=== PATIENT | female | born 1950 | race Caucasian/White ===

== ENCOUNTER 2019-03-28 12:28 | Day surgery (SDC) | payer OTHER, SELFPAY ==
[2019-03-14 07:51] VITALS: BMI 39.8
[2019-03-28] VITALS (12 sets, daily range): BP systolic 126–159; BP diastolic 72–94; PULSE 61–111; RESP 16–18; TEMP 35.6–36.6; O2SAT 94–98; BMI 39.4
--- NOTE | 2019-03-28 | DI.RAD.S_ITS ---
PROCEDURE: XR LUMBAR SPINE 1V INDICATIONS: LEFT L4-5 LAMI, L5-S1 DISC. TECHNIQUE: 2 views of the lumbar spine were acquired. COMPARISON: [facility], MR, MR LUMBAR SPINE WITHOUT CONTRAST, 02/03/2019, 16:54. FINDINGS: The quality of visualization is somewhat limited by large patient body habitus. Bones: An initial localization probe image from lateral view documents placement of probe superimposed on the posterior elements of L5-S1. Time is 17:51 time is immediately superficial to the posterior elements of L5-S1, time is 17:51 Subsequent image shows localization probe dorsal to the L4-L5 posterior elements. Time is 18:18. Soft tissues: Overlying bowel gas pattern is normal. No suspicious soft tissue calcifications. IMPRESSION: 2 separate levels of localization are documented, with the initial 17:51 localization at L5-S1 in the subsequent 18:18 localization at L4-L5. Dictated by: Wayne Sanchez M.D. on 03/29/2019 at 9:33 Approved by: Wayne Sanchez M.D. on 03/29/2019 at 9:38
[2019-03-28] MEDS: LACTATED RINGERS 1,000 ML 42 ML IV ×2 (13:12→16:55)
[2019-03-28] MEDS: fentaNYL 100 MCG/2 ML INJ 25 MCG IV (15:16)
--- NOTE | 2019-03-28 15:28 | SUR.PREOP ---
Dr. Higuera notified patient c/o pain. VVO for Fentanyl IV. Patient medicated. Reported pain level improving. Continuous pulse ox placed.
--- NOTE | 2019-03-28 15:36 | PM.PREOP ---
Pre-operative Note Interval Note History & Physical reviewed/Exam performed by Physician: Yes Changes to H&P: No
[2019-03-28] MEDS: SCOPOLAMINE 1 PATCH TOP (16:11)
[2019-03-28] MEDS: CEFAZOLIN 2 GM/100 ML FROZ.PIGGY IV ×2 (16:20→23:36)
--- NOTE | 2019-03-28 16:44 | SUR.OPER ---
Prone on spine table, head in foam head support, padded chest and pelvic supports, gel pad at knees, lower legs supported by pillows; nipples, genitalia and toes free of pressure, arms secured on foam padded arm boards at <90 degrees abduction. Tape over blanket at thigh secured to table.
[2019-03-28] MEDS: SODIUM CHLORIDE 0.9% 1,000 ML, GENTAMICIN 80 MG IRR (16:49)
[2019-03-28] MEDS: BUPIVACAINE 0.25% (PF) 8 ML, fentaNYL 100 MCG INJ (16:49)
[2019-03-28] MEDS: THROMBIN (RECOMBINANT) 5,000 UNIT VIAL 5000 UNIT TOP (16:50)
[2019-03-28] MEDS: VANCOMYCIN 1,000 MG VIAL 1000 MG TOP (16:54)
--- NOTE | 2019-03-28 17:59 | PM.OP.1 ---
Operative Date/Time/Diagnoses Date of procedure: 03/28/19 Time of procedure: 17:59 Pre-op diagnosis: Lumbar stenosis with radiculopathy Lumbar disc herniation Morbid obesity Post-op diagnosis: same Procedure & Clinicians Procedure: L5-S1 diskectomy on left L4-5 laminectomy with facet cyst excision Use of microscope Placement of epidural catheter Same procedure as scheduled: Yes Indications: [age] year old female with intractable pain from stenosis and disc herniation. They had failed conservative management and requested operative intervention. Risks and benefits of surgery were discussed and appropriate consents were obtained. Surgeon: Tim Briggs Anesthesia Type: General Operative Notes Findings: None Closure Type: primary Specimen(s): none sent Estimated Blood Loss (mL): 10 Blood products transfused: none Procedure in detail: Patient was brought to the operating room and intubated on the table. A time-out was performed. There were rolled over the well-padded prone position on the Murray table. The back was prepped and draped in standard sterile fashion. Preoperative antibiotics were given. Using fluoroscopy, a 4 cm incision was made to the well-marked left of the midline at the L5-S1 level. We used Bovie to come down to and split the fascia. We then used the NuVasive MaXcess dilators with fluoroscopy and then opened our retractors. The soft tissue was cleared off with Bovie, a marker was placed, an x-ray was taken to confirm positioning at L5-S1. We then brought in the microscope. A combination of high-speed bur and Kerrison were used to perform a left-sided hemilaminotomy and hemifacetectomy. We carefully retracted the dura and exposed the disc. This was cleared with bipolar. This was very soft and felt more cystic. A scalpel used to perform an annulotomy and the majority of the cystic disc deflated although there still disc tissue below this. A pituitary was used to perform the diskectomy. The ball probe was swept underneath the dura along the disc to make sure there were no further loose fragments. This was also placed into the disc and moved around to make sure there were no further loose fragments. Once everything was adequately decompressed, the wound was copiously irrigated. We then removed the retractor and brought x-ray in again. We used the dilators to go to the L4-5 level. This was cleared off and a marker was placed to confirm positioning. We brought the microscope back in. Johnie and Kerrison rongeur screws to perform a left-sided laminectomy. We removed the facet cyst and the subarticular stenosis. At the end of this we could clear past the midline, cephalad and caudally and out laterally out to the foramen and everything was opened. An epidural catheter was filled with 100 mcg of fentanyl and 8 mL of 0.25% Marcaine. The dura was carefully depressed under the laminotomy site and the catheter was advanced 6 cm cephalad. The retractor was removed and the fascia was closed. The epidural catheter was then injected without resistance and removed. Vancomycin powder was placed in the wound. Superficial and skin were closed. Sterile dressing was placed. The patient was then rolled over, transferred to the stretcher, and brought to recovery room without complications. Please note this was a more complex case due to the patient's morbid obesity with a BMI of 40. We had used very long retractors and had limited motion with our instruments. This added an extra 30-45 minutes to the surgical time due to the complexity and difficulty from the morbid obesity. Complications: none Post-operative Condition: stable Disposition: PACU Plan for aftercare: Overnight admission. Up with PT and probable discharge tomorrow.
[2019-03-28] MEDS: ONDANSETRON 4 MG/2 ML INJ IV (18:15)
[2019-03-28] MEDS: HALOPERIDOL 5 MG/ML VIAL 2 MG IV (18:29)
--- NOTE | 2019-03-28 18:38 | SUR.PHASEI ---
pt. admitted into PACU @ 1809 moving about, trying to sit up, once up on her elbow pt. vomited yellow bile approx. 50cc. Anesthesia okay'd ondansetron IV for N/V.
--- NOTE | 2019-03-28 18:40 | SUR.PHASEI ---
with 5-10 min. of receiving IV ondansetron pt. vomited again, via emesis bag, approx 50cc. Anesthesia gave okay to administer haloperidol IV, once anesthesia put order in, pharmacy staff walked the haldol over to PACU, ACADEMIC COMPUTING DIRECTOR administered the drug for N/V.
--- NOTE | 2019-03-28 18:42 | SUR.PHASEI ---
N/V is controlled at present. Pt. rating pain minimal states maybe a 4
--- NOTE | 2019-03-28 19:02 | SUR.PHASEI ---
Report to Sisi Nobles RN.
[2019-03-28] MEDS: LACTATED RINGERS 1,000 ML 125 ML IV (20:55)
[2019-03-28] MEDS: HYDROMORPHONE 0.5 MG INJ IV (20:55)
--- NOTE | 2019-03-28 22:25 | PC.NURSE ---
Alanna shift note: Received patient from PACU, awake, alert and pleasant. S/P scheduled LAMI by Dr. Briggs. On RA, sat 98%. Oriented to room, environment, and plan of care. Educated regarding precautions, SCDs in place. Call light within reach, calls staff appropriately for assistance.
[2019-03-28] MEDS: ACETAMINOPHEN 325 MG TABLET 650 MG PO (23:43)
[2019-03-28] MEDS: OXYCODONE IR 5 MG TABLET 10 MG PO (23:44)
[2019-03-29] MEDS: OXYCODONE IR 5 MG TABLET 10 MG PO ×3 (03:27→13:29)
[2019-03-29] MEDS: PANTOPRAZOLE 20 MG TABLET PO (05:26)
[2019-03-29] MEDS: LEVOTHYROXINE 125 MCG TABLET PO (05:27)
[2019-03-29 06:12] VITALS: BP 103/58; PULSE 58; RESP 16; TEMP 36.6; O2SAT 96
[2019-03-29] MEDS: ACETAMINOPHEN 325 MG TABLET 650 MG PO ×2 (06:39→13:30)
[2019-03-29] MEDS: OXYCODONE IR 5 MG TABLET PO (06:40)
[2019-03-29] MEDS: CEFAZOLIN 2 GM/100 ML FROZ.PIGGY IV (07:54)
[2019-03-29 08:00] VITALS: BP 141/64; PULSE 55; RESP 16; TEMP 36.9; O2SAT 95
--- NOTE | 2019-03-29 08:19 | PC.NURSE ---
Addendum entered by Luci Chappell R.N. 03/29/19 14:06: DC - pt ambul with phys therapy, eval w/OT, dressed, sl dc'd, discussed pain mgt and given 10mg po oxycodone and 650mg po tylenol prior to discharge home, reviewed dc instructions, paperwork, scripts provided, belongings gathered, including cell phone, tablet, fire extinguisher charger, own fww, bag, glasses, dentures, transf to and barrel header escorted to family car. Original Note: AM NOTE - pt awakens easily at bedside shift report, lying l side, telfa over 4x4 to lower back cdi, bs dim, clear, discussed nausea post op has resolved and none overnight, +bt, + flatus, discussed constipation and narcotics, hr hallie, reg 58, footie scd on.
--- NOTE | 2019-03-29 08:25 | PM.PNPO.1 ---
Subjective Subjective Date Patient Seen: 03/29/19 Time Patient Seen: 08:25 Interval history: She is doing very well. Pain about 4/10 across the back. No more leg pain. She is finally doing better with nausea. Exam Vital Signs (past 8 hours): - 03/29/19 06:12 Temperature 97.8 F Pulse Rate 58 L Respiratory Rate 16 Blood Pressure 103/58 L Pulse Oximetry 96 Oxygen Delivery Method Room Air Oxygen Flow Rate 0 Const Orientation: alert and oriented x3 Back/Spine/Pelvis Other: CDI. 5/5 motor both lower extremities. Assessment & Plan Post-op Postoperative Procedures: Procedures Operation Date: 03/28/19 14:00 Actual Procedures Side Surgeon p Left L45 laminectomy & L5S1 discectomy Tim Briggs MD she is doing well. Mobilize with PT. Plan to discharge home this morning.
[2019-03-29] MEDS: DOCUSATE 100 MG CAPSULE PO (09:36)
[2019-03-29] MEDS: GABAPENTIN 300 MG CAPSULE PO (09:36)
[2019-03-29] MEDS: IBUPROFEN 400 MG TABLET 800 MG PO (09:36)
[2019-03-29] MEDS: DONEPEZIL 5 MG TABLET 10 MG PO (09:36)
[2019-03-29] MEDS: OLANZapine 2.5 MG TABLET 5 MG PO (09:37)
[2019-03-29] MEDS: BUSPIRONE 15 MG TABLET 7.5 MG PO (09:37)
[2019-03-29] MEDS: QUETIAPINE 25 MG TABLET 50 MG PO (09:43)
[2019-03-29] MEDS: levETIRAcetam 250 MG TABLET 1000 MG PO (09:45)
--- NOTE | 2019-03-29 09:45 | OT.IP.EVAL ---
Current Diagnoses Spondylolisthesis, lumbar region (03/28/19) Spinal stenosis, lumbar region with neurogenic claudication (03/28/19) Intervertebral disc disorders with radiculopathy, lumbar region (03/28/19) Surgery Performed Operation Date: 03/28/19 14:00 Actual Procedures p Left L45 laminectomy & L5S1 discectomy - Tim Briggs MD Past Medical History (Last Updated 03/14/19 @ 13:57 by Magalys Cagle RN) Acquired hypothyroidism (Acute) Anxiety (Acute) Arthritis (Acute) Carpal tunnel syndrome of left wrist (Acute) Carpal tunnel syndrome of right wrist (Acute) Compression fracture of L4 vertebra (Acute) Compression fracture of L5 vertebra (Acute) Depression (Acute) GERD (gastroesophageal reflux disease) (Acute) MARVIN (obstructive sleep apnea) (Acute) Osteoarthritis (Acute) Polycythemia (Acute) Seizure disorder (Acute) Thyroid disease (Acute) Surgical History (Last Updated 03/14/19 @ 13:57 by Magalys Cagle RN) H/O: hysterectomy (Acute) History of ankle surgery (Acute ~2005) History of colposcopy (Acute ~1994) Hx of cholecystectomy (Acute ~2009) Hx of tonsillectomy (Acute) Occupational Therapy Inpatient Evaluation/Re-Eval M1 PT/OT-IP Prior Functional Status Start: 03/29/19 10:04 Freq: NEEDED Status: Active Protocol: Document 03/29/19 10:05 [facility] (Rec: 03/29/19 10:29 [facility] [id number]) Medical Review Prior Functional Status Medical History Reviewed Yes Communication Independent Activities of Daily Living and IADL's Per pt needing increased time for LB dressing for left side and having more difficulty to step into her tub/shower. Pt otherwise independent with ADl and IADl needs. Pt does not drive due to history of seizures. Pt's daughter lives 5 houses down and will be able to stay with her for one week . Pt has rented a hospital bed to use at home. Social History Household Members none Living Arrangements House Number of Floors (Floors) Two Floors Number of Stairs To Enter/Railing? Threshold to enter the townhouse and 15 steps with right rail up. Home Environment Standard Height Toilet,Tub/ Shower Home Equipment Hospital Bed Additional Social History Comment Pt has a hurry cane. Pt has a cat and taking care of grand- daughter's puppy- however pt aware best to not have puppy home initially as per pt the puppy gets under her feet. M2 OT-IP Current Condition Start: 03/29/19 10:04 Freq: Status: Active Protocol: Document 03/29/19 10:05 [facility] (Rec: 03/29/19 10:29 [facility] [id number]) Occupational Therapy Current Condition Current Condition Evaluation Date 03/29/19 Treatment Diagnosis S/p L4-5 Lami and L5-S1 discectomy Diagnosis Onset Date 03/28/19 Post Operative Precautions Lumbar Precautions Log Roll,No Twisting,Limit Bending,Lifting Restriction of 10 lbs,Gait Belt above Incisional Area Weight Bearing Status Weight Bearing Status Weight Bear as Tolerated M3 OT- IP Subjective and Pain Start: 03/29/19 10:04 Freq: Status: Active Protocol: Document 03/29/19 10:05 [facility] (Rec: 03/29/19 10:29 [facility] [id number]) OT- Subjective Occupational Therapy Visit Type Type Initial Evaluation Visit Start Time 08:44 Visit Stop Time 09:45 Total Visit Minutes 61 Occupational Therapy Visit Comments Patient Comments Pt cooperative a bit impulsive and agreed to work with OT for OT eval. Patient/Caregiver Goals To go home today. OT Pain Assessment Pain When Pain Assessed At Rest Pain Present Pain Present Pain Reported Location Lower Back Intensity 3 Scale Used Numeric (1 - 10) M4 OT- IP ADL's Start: 03/29/19 10:04 Freq: Status: Active Protocol: Document 03/29/19 10:05 [facility] (Rec: 03/29/19 10:29 [facility] [id number]) OT [id number] Comments OT Self-Feeding Comments Not a meal time. OT ADL-Grooming General Evaluation Grooming Ability Standby Assistance Comments OT Grooming Comments vc for body mechanics to lean at hips to spit into the sink. OT ADL-Oral Care General Eval Oral Care Ability Independent OT ADL-Dressing General Eval Upper Body Dressing Ability Independent Lower Body Dressing Ability Standby Assistance Areas Needing Assistance Retrieving/Set-up of Clothing Comments OT Dressing Comments Pt able to comfortable cross her leg over to wendie/doff right sock, tie shoes and needing SCOUT for left sock. Able to educate pt on use of sock aid and small battery plate assembler to increase independence for LB dressing needs. OT ADL-Toileting General Evaluation Toileting Ability Standby Assistance Comments OT Toileting Comments Educated to lean to wipe or stand. Suggested to get a BSC as pt states has been getting up at night 2-4 times. In addition to get some pads so does not have to shaw to go to the bathroom. OT ADL-Bathing Comments OT Bathing Comments Pt wanting to shower at home. Suggested to get either tub bench or shower chair and grab bar in the shower. Initially pt decided to shower at her daughter's house who has a walk in shower and shower chair already present. M5 OT- IP IADL's Start: 03/29/19 10:04 Freq: Status: Active Protocol: Document 03/29/19 10:05 [facility] (Rec: 03/29/19 10:29 [facility] [id number]) OT-Instrumental Activities of Daily Living Home Safety Awareness Awareness of Need for Assistance at Home Good Awareness Ability to Problem Solve Emergency Able to Problem Solve Situations Medication Management Medication Management No Deficits Identified Meal Preparation Meal Preparation No Deficits Identified Press Clipper Press Clipper Caregiver Provides Assist Driving Driving Caregiver Provides Assist M6 OT- IP Functional Cognition Start: 03/29/19 10:04 Freq: Status: Active Protocol: Document 03/29/19 10:05 [facility] (Rec: 03/29/19 10:29 [facility] [id number]) Cognitive Factors Limiting Selfcare Function Cognitive Ability Level of Alertness Alert Patient Orientation Name,Age,Birthday,Month,Date, Year,Day of Week,Place, Situation Attention Span Ability Capable of Focused Attention, Capable of Sustained Attention Ability to Follow Commands Able to Follow Multi-Step Commands Memory Description Short Term Impaired Safety Awareness Decreased Ability to Apply Precautions,Underestimates Need for Assistance Cognitive Comments Cognitive Assessment Comments Pt able to state all precautions however has trouble to incorporate during needs as forget and tends to twists. Pt a bit impulsive as well and educated to slow down, think things through. Fore example while use of small battery plate assembler for LB dressing, pt placed the small battery plate assembler on the ground instead of next to her on the recliner for ease of use. Also suggested to attach the small battery plate assembler to the walker for easy access of use. OT- Vision and Hearing OT- Hearing Assessment OT- Hearing Assessment WFL OT- Vision Assessment Visual Acuity Glasses All The Time M7 OT- IP Mobility and Balance Start: 03/29/19 10:04 Freq: Status: Active Protocol: Document 03/29/19 10:05 [facility] (Rec: 03/29/19 10:29 [facility] [id number]) OT- Bed Mobility Assessment Rolling Level of Assistance Standby Assistance Supine to Sit Supine to Sit Assist Standby Assistance,Bedrails Sit to Supine Sit to Supine Assist Standby Assistance,Bedrails Scooting Scooting to Edge of Bed Standby Assistance OT-Transfer Assessment Sit to and From Stand Sit to and from Stand Standby Assistance,Contact Guard Assistance Transfers Transfer Ability Standby Assistance,Contact Guard Assistance Technique Transfer Destination Bed,Chair,Toilet Transfer Technique Stand Step Pivot Devices Transfer Assistive Devices Gait Belt,Front Wheeled Walker Comments Mobility Comments Pt needing education to scoot forwards and push up with at least one hand on the armrest when coming to stand. Pending level of surface standing from pt needing from CGA to SBA. Pt a little unsteady without the FWW and leaning to the left and best to have FWW at this time, especially for longer distances. Pt issued a FWW. OT- Balance Assessment Sitting Balance and Reactions Static Sitting Balance Ability Normal Dynamic Sitting Balance Ability Normal Standing Balance and Reactions Static Standing Balance Ability Good Dynamic Standing Balance Ability Fair M8 OT- IP Objective Assessments Start: 03/29/19 10:04 Freq: Status: Active Protocol: Document 03/29/19 10:05 [facility] (Rec: 03/29/19 10:29 [facility] [id number]) OT Gross Range of Motion Upper Extremity Range of Motion Assessment Within Functional Limits OT Strength Upper Extremity Strength Assessment Within Functional Limits OT-Muscle Tone Assessment Muscle Tone WNL Yes M9 OT- IP Assessment and Plan Start: 03/29/19 10:04 Freq: Status: Active Protocol: Document 03/29/19 10:05 [facility] (Rec: 03/29/19 10:29 [facility] [id number]) OT Summary Assessment and Plan Potential Rehabilitation Potential Excellent Analytic Complexity at Evaluation Low Summary OT Impairments Functional Cognition, Functional Mobility,Bathing Progress Towards Goals Progressing Toward Goals Assessment Summary Pt low complexity and main barriers are pt a bit impulsive and forgetting to incorporate back precautions for ADL and functional mobility needs. Pt's daughter to stay with her upon discharge and assist as needed . Pt looking to go home today. Pt has been issued FWW and LB dressing equipment. Goals Dressing Goal Independent Toileting Goal Independent Bathing Goal Supervision Toilet Transfer Goal Independent Shower Transfer Goal CGA Patient/Caregiver Education Goal Demonstrate Post-Op Precautions,Caregiver Independent Assisting Patient Days to Meet Goals 1 Frequency of Treatment Frequency Of Treatment Once a Day Treatment Plan OT Treatment Plan ADL Training,Functional Cognition Training,Functional Mobility,Patient/Family Education,Discharge Planning Other Treatment Recommendations and Next Shower if pt still here. Treatment Focus Discharge Recommendations OT Discharge Recommendations Home with Assistance Home Equipment Needs BSC, tub bench/shower chair, HHS, grab bars
--- NOTE | 2019-03-29 09:49 | PT.IIE ---
Current Diagnoses Spondylolisthesis, lumbar region (03/28/19) Spinal stenosis, lumbar region with neurogenic claudication (03/28/19) Intervertebral disc disorders with radiculopathy, lumbar region (03/28/19) Surgery Performed Operation Date: 03/28/19 14:00 Actual Procedures p Left L45 laminectomy & L5S1 discectomy - Tim Briggs MD Surgical History (Last Updated 03/14/19 @ 13:57 by Magalys Cagle RN) H/O: hysterectomy (Acute) History of ankle surgery (Acute ~2005) History of colposcopy (Acute ~1994) Hx of cholecystectomy (Acute ~2009) Hx of tonsillectomy (Acute) Medical History (Last Updated 03/14/19 @ 13:57 by Magalys Cagle RN) Acquired hypothyroidism (Acute) Anxiety (Acute) Arthritis (Acute) Carpal tunnel syndrome of left wrist (Acute) Carpal tunnel syndrome of right wrist (Acute) Compression fracture of L4 vertebra (Acute) Compression fracture of L5 vertebra (Acute) Depression (Acute) GERD (gastroesophageal reflux disease) (Acute) MARVIN (obstructive sleep apnea) (Acute) Osteoarthritis (Acute) Polycythemia (Acute) Seizure disorder (Acute) Thyroid disease (Acute) Physical Therapy Inpatient Evaluation/Re-Eval M1 PT/OT-IP Prior Functional Status Start: 03/29/19 10:04 Freq: NEEDED Status: Active Protocol: Document 03/29/19 10:05 [facility] (Rec: 03/29/19 10:29 [facility] [id number]) Medical Review Prior Functional Status Medical History Reviewed Yes Communication Indpendent Activities of Daily Living and IADL's Per pt needing increased time for LB dressign for left side and having more difficulty to step into her tub/shower. Pt otherwsie independent with ADl and IADl needs. Pt does not drive due to history of seizures. Pt's daughter lives 5 houses down and will be able to stay with her for one week . Pt has rented a hospital bed to use at home. Social History Household Members none Living Arrangements House Number of Floors (Floors) Two Floors Number of Stairs To Enter/Railing? Threshold to enter the townhouse and 15 steps with right rail up. Home Environment Standard Height Toilet,Tub/ Shower Home Equipment Hospital Bed Additional Social History Comment Pt has a hurry cane. Pt has a cat and taking care of grand- daughter's puppy- however pt aware best to not have puppy home initially as per pt the puppy gets under her feet. M1 PT/OT-IP Prior Functional Status Start: 03/29/19 11:47 Freq: NEEDED Status: Active Protocol: Document 03/29/19 09:49 AB (Rec: 03/29/19 12:13 AB [id number]) Medical Review Prior Functional Status Medical History Reviewed Yes Communication able to make needs known but seems to have a little confusion and impulsivity Mobility and Gait pt stated that she is independent with all mobilities and ambulation without AD Activities of Daily Living and IADL's Per OT's note: Per pt needing increased time for LB dressign for left side and having more difficulty to step into her tub/shower. Pt otherwsie independent with ADl and IADl needs. Pt does not drive due to history of seizures. Pt's daughter lives 5 houses down and will be able to stay with her for one week. Pt has rented a hospital bed to use at home. Social History Household Members none Living Arrangements House Number of Floors (Floors) Two Floors Number of Stairs To Enter/Railing? pt stated not steps to enter; 15 steps to bedroom level but pt stated that she will stay on main level of the house Home Environment Standard Height Toilet,Tub/ Shower Home Equipment Shower Seat with Backrest, Hospital Bed,Grab Bars In Shower Employment Status Retired Additional Social History Comment Pt has a hurry cane daughter will stay with pt for ~ 1 week to assist her; pt lives a few blocks away from pt's house. M2 PT-IP Current Condition Start: 03/29/19 11:47 Freq: NEEDED Status: Active Protocol: Document 03/29/19 09:49 AB (Rec: 03/29/19 12:13 AB [id number]) Physical Therapy Current Condition Current Condition Evaluation Date 03/29/19 Treatment Diagnosis s/p L5S1 L diskectomy; L4-5 lami; difficulty in walking Onset Date 03/28/19 Precautions Lumbar Precautions Log Roll,No Twisting,Limit Bending,Lifting Restriction of 10 lbs,Gait Belt above Incisional Area M3 PT-IP Subjective Start: 03/29/19 11:47 Freq: NEEDED Status: Active Protocol: Document 03/29/19 09:49 AB (Rec: 03/29/19 12:13 AB [id number]) Subjective Physical Therapy Visit Type Type Initial Evaluation Visit Start Time 09:49 Visit Stop Time 10:30 Total Visit Minutes 41 Number of DRAFTER LANDSCAPE Visits 0 Physical Therapy Visit Comments Patient Comments pt agreeable to do PT Patient Goals to go home Therapy Pain Assessment Pain When Pain Assessed At Rest Pain Present Pain Present Pain Reported Location Lower Back Intensity 4 Scale Used increased to 5.5 after mobility Pain Management Techniques Timing of Activity with Medications M4 PT-IP Mobility and Gait Start: 03/29/19 11:47 Freq: NEEDED Status: Active Protocol: Document 03/29/19 09:49 AB (Rec: 03/29/19 12:13 AB [id number]) PT-Bed Mobility Assessment Rolling Type of Rolling Log Rolling Level of Assist Standby Assistance Supine to Sit Supine to Sit Standby Assistance Sit to Supine Sit to Supine Standby Assistance Scooting Scooting to Edge of Bed Standby Assistance PT-Transfer Assessment Sit to and From Stand Sit to and from Stand Standby Assistance Equipment Transfer Assistive Device Gait Belt,Front Wheeled Walker Orthotic/Prosthetic Devices or Brace: Yes Transfers Transfer Destination Bed,Chair Transfer Technique Stand Step Pivot Transfer Ability Level of Assist Standby Assistance Comments Mobility Comments bed mobility training: completed log roll x 7 reps SBA but requiring cues for techniques and to maintain precautions Sit<>stand x 8 reps: SBA and cues for techniques and safety Gait Assessment Gait Gait Assistance Required: Standby Assistance Distance (Feet) 125 Able to Maintain Weight Bearing Status Yes During Gait Assistive Devices Assistive Device Gait Belt,Front Wheeled Walker Orthotic/Prosthetic Devices or Brace: No Gait Deviations General Gait Pattern Antalgic,Decreased Stride Length,Decreased Feet Clearance Factors Limiting Gait Function Factors Limiting Gait Function Decreased Activity Tolerance, Decreased Strength,Pain,Poor Balance,Poor Safety Awareness PT-Balance Assessment Sitting Balance and Reactions Static Sitting Balance Ability Good Dynamic Sitting Balance Ability Good Standing Balance and Reactions Static Standing Balance Ability Fair Dynamic Standing Balance Ability Fair Device Used FWW M5 PT-IP Objective Assessments Start: 03/29/19 11:47 Freq: NEEDED Status: Active Protocol: Document 03/29/19 09:49 AB (Rec: 03/29/19 12:13 AB [id number]) Orientation Orientation/Cognition Level of Alertness Alert Orientation Name,Place,Situation Safety Awareness Decreased Safety Awareness Gross Range of Motion Lower Extremity ROM Assessment Within Functional Limits Strength Lower Extremity Strength Assessment Within Functional Limits Sensation Assessment Sensation Gross Sensation WNL Muscle Tone Muscle Tone WNL Yes M6 PT-IP Treatment Start: 03/29/19 11:47 Freq: NEEDED Status: Active Protocol: Document 03/29/19 09:49 AB (Rec: 03/29/19 12:13 AB [id number]) Physical Therapy Treatment Education Education Provided Precautions,Weight Bearing Status,Post-Op Packet,Safety Equipment Issued Equipment Type and Company OT asked for FWW order for pt since pt does not have FWW to use at home and is discharging today. FWW adjusted and dispensed to pt. OT completed DME papers. M7 PT-IP Assessment and Plan Start: 03/29/19 11:47 Freq: NEEDED Status: Active Protocol: Document 03/29/19 09:49 AB (Rec: 03/29/19 12:13 AB [id number]) PT Summary Assessment and Plan Potential Rehabilitation Potential Good Status of Condition at Evaluation Stable Summary Impairments Pain,ROM,Strength,Balance, Coordination,Cognition,Bed Mobility,Transfers,Gait, Activity Tolerance Assessment Summary pt requiring SBA with mobility and her daughter will stay with her for the first week to assist her. pt also stated that she will have PT. pt may go home when medically stable . Goals Bed Mobility Goal Independent Transfer Goal Independent,Front Wheeled Walker Gait Goal Independent,Front Wheel Walker Gait Distance 250 Other Goals up/down 15 steps 1 rail SBA Days to Meet Goals 3 Frequency of Treatment Frequency Of Treatment Twice a Day Treatment Plan Physical Therapy Treatment Plan Bed Mobility Training,Transfer Training,Gait Training, Therapeutic Exercise,Balance Retraining,Post Op Education, Discharge Planning,Hot or Cold Pack,Neuromuscular Re-ed, Coordination Retraining,Manual Therapy Other Recommendations and Next Treatment ambulation, caregiver training Focus if appropriate Recommendations To Nursing Amount of Assist Needed 1 Person Assist Discharge Recommendations PT Discharge Recommendations Home with Assistance Equipment Needed for Home Before FWW Discharge
--- NOTE | 2019-03-29 15:27 | CM.DANOTE ---
DCP/Assessment: Reviewed chart. Patient is a 68yr old female admitted [facility] surgery performed by Dr. Briggs on 03-28-2019. No PCP listed. Primary payor is 1)[facility]. Met with patient this AM explained CM/SW role. Patient alert and oriented during visit and ready to go home today. Patient reports that she has family/daughter staying with her upon d/c. Patient obtained hospital bed, walker and additional DME for home use. Patient reports that she has no identified d/c planning needs. P:Home today. NIK Armijo Discharge Planning/Care Management CM Discharge Assessment Start: 03/29/19 15:16 Freq: Status: Active Protocol: Document 03/29/19 15:25 KJS (Rec: 03/29/19 15:27 KJS [id number]) Discharge Planning Assessment Assigned Pin Drafter Operator NIK Armijo Contact Information Victor M Andino (son) Advance Directives? No History Provided By Patient,Medical Record Prior Living Arrangements House Household Members none Type of transporation used prior to Relies on Others admit Independent with ADL's Yes Is patient alert and oriented? Yes Caregiver for Another No DME Already Rented / Owned Hospital Bed,FWW / Walker Barriers to Discharge No Discharge Plan Home Transportation Arrangement Daughter to provide transport Referrals Initiated None needed Whiteboard Updated in Patient Room with Yes name and ext. # of Pin Drafter Operator Review Status In Process Next Review Type Continued Stay Review Pre-Anesthesia Assessment Start: 03/14/19 07:51 Freq: Status: Discharge Protocol: Document 03/14/19 07:51 CAB (Rec: 03/14/19 12:55 CAB [id number]) Pre-Anesthesia Assessment Patient Information Reviewed Via Chart Review Primary Care Provider Jeremias Olivares Seen Specialist in Last 12 Months Yes Specialist Seen Orthopedist Comment PCP note 12/28/18 scanned to record Primary Language Maltese Associate Agent Insurance Sales Required No Height 167.01 cm Weight 111.13 kg Body Mass Index (BMI) 39.8 Barriers to Learning None Other Aids No Anesthesia Review Requested No Mercury Purifier No alcohol intake current Smoking Status Never smoker Pain Present Pain Reported Musculoskeletal Symptoms Back Pain,Joint Swelling, Radiating Pain into Limb History of Falling (Recent or History of No ) Patient is completely paralyzed or No completely immobile Mental Status Oriented to own ability Hx Sleep Apnea Yes: CPAP compliance unknown Currently Taking a Beta Spencer No Anti-Coagulant Therapy No Has a Graduate Assistant No Cardiac Testing No Hx Pacemaker/ICD No Pacemaker Rep Required? No Cardiac Clearance Received Not Applicable dysphagia No Urinary Catheter Present No Hx Urinary Self Catheterization No Diabetes No Patient No Lactating No Marital Status Lives With spouse Patient Discharge Plan Description Return Home
== END 2019-03-29 14:08 | disposition home or self-care (01) ==
LOC: OR 12:33 → AC 19:50
PROVIDERS: Visit Provider Orthopaedic Surgery
PROC: (CPT 63047; principal; 2019-03-28 14:00)
DX: M48.062 Spinal stenosis, lumbar region with neurogenic claudication (principal); M51.16 Intervertebral disc disorders with radiculopathy, lumbar region; M43.16 Spondylolisthesis, lumbar region; E66.01 Morbid (severe) obesity due to excess calories; Z68.41 Body mass index [BMI] 40.0-44.9, adult; G40.909 Epilepsy, unspecified, not intractable, without status epilepticus; G47.33 Obstructive sleep apnea (adult) (pediatric); M71.38 Other bursal cyst, other site
CPT/HCPCS: 63047; 63030; 72020; 76000; 97161; 97165; 97530; 97535; J0330; J0690; J1100; J1170; J1630; J2250; J2405; J2704; J3010

== ENCOUNTER → 2024-07-03 14:24 | Outpatient (CLI) | payer OTHER, SELFPAY ==
[2019-03-28 21:51] VITALS: BMI 39.4
--- NOTE | 2024-07-03 14:57 | EKG_ITS ---
[address] [address] Test Date: 2024-07-03 Pat Name: Jena Bonilla Department: [facility] Room: Gender: Female Lab Scientist: : 1950 Requested By: Order Number: [id number] Reading MD: Freddy Pedersen MD Measurements Intervals [place] Rate: 84 P: 11 WA: 156 QRS: -24 QRSD: 88 T: 63 QT: 368 QTc: 434 Interpretive Statements Normal sinus rhythm Septal infarct , age undetermined Electronically Signed On 07-03-2024 16:53:14 PDT by Freddy Pedersen MD
[2024-07-03 15:19] LABS: Add Manual Diff / Slide Review NO; Basophils Absolute Auto 100 /uL (0-100); Basophils Percent Auto 0.8 % (0-2); Eosinophils Absolute Auto 100 /uL (0-450); Eosinophils Percent Auto 0.9 % (2-4); Hematocrit 37.3 % (36-46); Hemoglobin 12.1 g/dL (12.0-16.0); Lymphocytes Absolute Auto 2600 /uL (1100-4500); Lymphocytes Percent Auto 27.7 % (25-40); Mean Corpuscular HGB Conc 32.5 % (30-36); Mean Corpuscular Hemoglobin 22.8 PG (26-34); Mean Corpuscular Volume 70.2 fL (80-100); Monocytes Absolute Auto 500 /uL (0-900); Monocytes Percent Auto 5.5 % (3-14); Neutrophils Absolute Auto 6100 /uL (1500-7000); Neutrophils Percent Auto 65.1 % (50-75); Platelet Count 363 X10^3/uL (150-400); Red Blood Cell Count 5.32 X10^6/uL (4.0-5.2); White Blood Cell Count 9.3 X10^3/uL (4.5-11.0)
[2024-07-03 15:30] LABS: BUN Creatinine Ratio 14.7 (6-22); Blood Urea Nitrogen 10 mg/dL (7-17); Calcium 9.6 mg/dL (8.4-10.2); Carbon Dioxide 25 mmol/L (22-32); Chloride 104 mmol/L (98-107); Estimated Glomerular Filt Rate > 60 mL/min (>60); Glucose 132 mg/dL (80-110); HEMOLYSIS < 15 (0-50); Potassium 4.4 mmol/L (3.4-5.1); Sodium 137 mmol/L (137-145)
[2024-07-03 15:37] LABS: Anisocytosis 2+
== END ==
PROVIDERS: Referring Provider Orthopaedic Surgery Foot and Ankle Surgery; Visit Provider Orthopaedic Surgery Foot and Ankle Surgery
DX: Z01.818 Encounter for other preprocedural examination (principal); Z01.812 Encounter for preprocedural laboratory examination
CPT/HCPCS: 36415; 80048; 85025; 93005; 93010

== ENCOUNTER 2024-08-23 11:45 | Day surgery (SDC) | payer OTHER, SELFPAY ==
[2019-03-28 21:51] VITALS: BMI 39.4
[2024-08-16 08:59] VITALS: BMI 41.2
[2024-08-17 13:46] VITALS: BMI 41.2
[2024-08-23] VITALS (9 sets, daily range): BP systolic 103–177; BP diastolic 64–105; PULSE 87–102; RESP 15–27; TEMP 36.1–36.6; O2SAT 90–95; BMI 42.3
--- NOTE | 2024-08-23 | DI.RAD.S_ITS ---
PROCEDURE: XR ANKLE LT MIN 3V INDICATIONS: left hindfoot fusion TECHNIQUE: Fluoroscopic guidance utilized for a left hindfoot fusion COMPARISON: None. FINDINGS: Fluoroscopic images submitted for a left hindfoot fusion. Please see operative note for further discussion. IMPRESSION: Fluoroscopic guidance. Dictated by: Kennedy Hutchinson M.D. on 08/24/2024 at 9:31 Approved by: Kennedy Hutchinson M.D. on 08/24/2024 at 9:32
[2024-08-23] MEDS: LACTATED RINGERS 1,000 ML 42 ML IV ×2 (12:45→15:31)
[2024-08-23] MEDS: ALBUTEROL/IPRATROPIUM 3 ML AMPUL INH ×2 (13:48→17:48)
--- NOTE | 2024-08-23 13:51 | SUR.PREOP ---
HECTOR Pop from Dr. Higuera. Patient reported chonic cough, which was not witnessed till the Duoneb was active.
--- NOTE | 2024-08-23 14:06 | PM.PREOP ---
Pre-operative Note Interval Note History & Physical reviewed/Exam performed by Physician: Yes Changes to H&P: No
--- NOTE | 2024-08-23 14:26 | SUR.PREOP ---
Block start time 1409, with a time out at 1407. Monitoring initiated and maintained throughout procedure. Oxygen and medications given by anesthesiologist. Patient remained stable throughout procedure, no adverse reactions noted. Block end time 1421.
--- NOTE | 2024-08-23 14:35 | PM.OP.1 ---
Operative Date/Time/Diagnoses Date of procedure: 08/23/24 Time of procedure: 14:45 Pre-op diagnosis: Acquired pes planovalgus left foot, equinus contracture left ankle, arthritis left foot Post-op diagnosis: same Procedure & Clinicians Procedure: Arthrodesis triple, hindfoot left CPT code 50181 Arthrodesis navicular cuneiform joint single CPT code 11768 Lengthening left Achilles tendon separate surgery site CPT code 66530 left modifier 59 for separate site Same procedure as scheduled: Yes Indications: The patient was a 73-year-old female with rigid pes planovalgus deformity with chronic pain. She has failed conservative treatments and has been wearing bilateral short articulated AFOs with persistent pain and sub fibular impingement. She has hindfoot arthritis on radiographs has been indicated for triple arthrodesis and tendo-Achilles lengthening as indicated. The risks and benefits of the procedure have been discussed with the patient and given the opportunity to ask questions. The risks of surgery include but are not limited to infection, malunion, nonunion, persistence of pain, damage to nerves and blood vessels, posttraumatic arthritis, DVT, PE, cardiopulmonary complications and . The patient expressed a thorough understanding of the risks and benefits of surgery and has elected to proceed. Consent was signed in the office today. Surgeon: Jennifer Frank Click Yes if Unassisted: Yes Anesthesia Type: General, Peripheral nerve block and Local Operative Notes Findings: Incompletely correctable pes planovalgus left foot. Equinus contracture. After correction of subtalar joint and talonavicular joint and calcaneocuboid joint was noted some residual supination primarily through NC joint so fusion was extended through NC joint to correct supination correcting the arthritic flatfoot. Closure Type: primary Specimen(s): none sent Prosthetic devices, grafts, tissues, transplants, or devices: [place] 28 7.0 headless screws subtalar fusion x2 80 mm and 84 mm 4.5 headless screw talonavicular joint x 50mm long thread 4.5 headless screw navicular cuneiform joint x 55 mm Great white staple 18 mm x1, 20 mm x 2 Applied: graft(s) (5 cc surgimatrix demineralized cortical fibers 5 cc) Estimated Blood Loss (mL): 50 Blood products transfused: none Tourniquet time (min): 90 Procedure in detail: Patient was seen in the preoperative area the site of surgery marked informed consent confirmed. This was the left foot. She was brought back to the operating room by the anesthesia team. Peripheral nerve block was placed by the anesthesia team for postoperative pain control. She was positioned supine on operative table all bony prominences well padded. An SCD was placed on the contralateral lower extremity. A well-padded thigh tourniquet was placed. The operative extremity was prepped and draped in the standard sterile fashion. The operative extremity was prepped and draped in the standard sterile fashion. A formal time-out procedure was performed confirming the patient's side and site of surgery administration of appropriate preoperative antibiotics. All were in agreement. Implants were in the room at accounted for. Attention was turned to the leg in the Esmarch bandage was used for exsanguination the tourniquet elevated to 250 mmHg. Achilles tendon lengthening. Patient had an Achilles contracture. A open tendo-Achilles lengthening was performed through a triple Vilma style with 3 kamilah section tenotomies the most distal and most proximal directed laterally in the central kamilah section directly medially. The ankle stretched and dorsiflexion providing audible stretching release. Attention was turned to the lateral foot. A longitudinal incision drawn from the tip of the fibula in line with the 4th metatarsal along the sinus tarsi was drawn out and then made through the skin and subcutaneous tissues sharply. The extensor digitorum brevis was elevated out of the sinus tarsi and reflected distally. Sinus tarsi was exposed. A Steinmann pin was placed in the talus and into the calcaneus and the wire retractor was used to distract the subtalar joint. A combination of osteotomes and curette and bur were used to prepare the posterior facet of the subtalar joint and the inferior aspect of the talus. This was meticulously prepared to bleeding subchondral bone which was then drilled with a fenestrating drill and fish-scaled. Care was taken and this incision to carefully reflect the peroneal tendons inferiorly and the incision was then extended distally to expose the calcaneocuboid joint which was denuded and prepared in the same fashion down to bleeding cancellous bone. Next the allograft fibers were placed into the subtalar joint and calcaneocuboid joint. The subtalar joint was reduced into neutral and pinned with pins for the 7. 0 cannulated screws from the heel through the subtalar joint in a reduced position this was checked on multiplanar intraoperative C-arm fluoroscopy axial lateral and AP of the ankle to confirm appropriate alignment of the screws across the subtalar joint. These were then measured and overdrilled and placed. These were cannulated headless screws from the paragon 28 set. This provided excellent stabilization correction of the subtalar joint. Then attention was turned to the calcaneocuboid joint which was repaired and stabilized with a 20 mm paragon staple. Next attention was turned medially to the talonavicular joint. A incision was made dorsal medially this is taken just lateral to the tibialis anterior which was retracted medially and the EHL laterally. This was dissected down to the talonavicular joint and then the K-wires were used to distract the talonavicular joint and this was. In the similar fashion with the burs osteotomes and curette to expose the subchondral bone which was then fenestrated with a fenestrating drill and fish-scaled for good bleeding bone. Once this was completed again the demineralized bone matrix fibers were applied and then the talonavicular joint was reduced and provisionally pinned. This corrected the talonavicular uncoverage but there was still some supination of the foot was noted on the imaging and clinical examination to be more residual instability through the navicular cuneiform joint then the tarsometatarsal joint so decision was made to extend the fusion to the navicular cuneiform joint which was then suppressive we dissected and prepared in the same fashion down to bleeding cancellous bone which was then fenestrated drilled and bone graft applied. This was then reduced pronating to correct the supination and provisionally pinned. X-rays were checked on AP and lateral views confirming appropriate alignment and pin placement K-wires were then overdrilled and a 4 5 screw was placed across the talonavicular joint and then a 18 mm [id number] staple. Then the navicular cuneiform fusion was completed using a 4.5 screw and a 20 mm [id number] staple. This is checked on fluoroscopy in multiple planes demonstrated appropriate alignment and deformity correction with a neutral Meary's angle and excellent hardware placement. Final x-rays of the implanted hardware were obtained confirming appropriate compression alignment of the hindfoot. This point wounds were irrigated tourniquet was released hemostasis was achieved. Deep tissue was closed with 2-0 Vicryl and then subcutaneous and 4-0 Monocryl and 3-0 nylon in the skin. Incision for the calcaneal screws was closed with 3-0 nylon. Sterile dressing through lateral Xeroform bulky Nixon cotton and a posterior and U splint were placed the patient was woken from anesthesia and taken to recovery room in good condition. No immediate complications. All counts were correct. Complications: none Post-operative Condition: stable Disposition: PACU Plan for aftercare: Touchdown or nonweightbearing 8-10 weeks postop. Aspirin 325 mg daily starting postop day 1 for DVT prophylaxis x6 weeks. Follow up in orthopedic clinic as scheduled for wound check.
[2024-08-23] MEDS: CEFAZOLIN 2 GM/100 ML PREMIX 100 ML IV (14:39)
--- NOTE | 2024-08-23 15:16 | SUR.OPER ---
Supine on padded OR bed, head on pillow, arms secured on padded arm boards at <90 degrees abduction, legs uncrossed, safety belt at thigh, tape over blanket over lower right leg. Left leg on stack of blankets and under control of surgeon. Bath blanket bump under patients right hip.
[2024-08-23] MEDS: BUPIVACAINE 0.25% W/ EPI 30 ML VIAL INJ (15:30)
[2024-08-23] MEDS: ACETAMINOPHEN IV 1,000 MG/100 ML VIAL 400 MG IV (15:37)
[2024-08-23] MEDS: ONDANSETRON 4 MG ODT SL (19:06)
== END 2024-08-23 19:11 | disposition home or self-care (01) ==
PROVIDERS: Referring Provider Orthopaedic Surgery Foot and Ankle Surgery; Visit Provider Orthopaedic Surgery Foot and Ankle Surgery
PROC: (CPT 27870; principal; 2024-08-23 13:45)
PROC: (CPT 27685; 2024-08-23 13:45)
DX: M19.072 Primary osteoarthritis, left ankle and foot (principal); M21.42 Flat foot [pes planus] (acquired), left foot; M24.572 Contracture, left ankle; G89.18 Other acute postprocedural pain
CPT/HCPCS: 28715; 27685; 28740; 64450; 73610; 76000; C1713; J0131; J0690; J1100; J1171; J2405; J2704; J3010; J3490